=== PATIENT | male | born 1970 | race Caucasian/White ===

== ENCOUNTER 2024-10-30 11:24 | Observation (INO) | payer OTHER, SELFPAY ==
[2024-10-30] VITALS (7 sets, daily range): BP systolic 134–151; BP diastolic 71–87; PULSE 74–94; RESP 14–18; TEMP 36.2–36.8; O2SAT 98–100; BMI 47.5; BMI 21.3
--- NOTE | 2024-10-30 11:35 | EKG12_ITS ---
Test Reason : Blood Pressure : */* mmHG Vent. Rate : 91 BPM Atrial Rate : 91 BPM P-R Int : 166 ms QRS Dur : 76 ms QT Int : 326 ms P-R-T Axes : 71 57 71 degrees QTcB Int : 400 ms Normal sinus rhythm Normal ECG Confirmed by DAHLIA IRENE, TRESSA ([id number]), production editor CAROL WOODWARD ([id number]) on 11/03/2024 1:37:16 P M Referred By: Raymond Doty Confirmed By: TRESSA VILLAGOMEZ MD
--- NOTE | 2024-10-30 11:38 | EDS_ITS ---
HPI History of Present Illness Chief Complaint: Wound Detail of Chief Complaint: Wound plantar surface left foot first noted 1 week ago Informant: patient and family Onset/Context/Timing Onset: Weeks Context: Sudden Onset Timing: Continuous Quality: Wound plantar surface left foot, red streaks have since developed dorsal me Location: Plantar surface, medial dorsal surface of foot and medial anterior leg Current Severity: Moderate Maximum Severity: Moderate Worsened by: Presumed PAD and diabetes Relieved by: Nothing Associated Symptoms Associated Symptoms: No constitutional symptoms Narrative Narrative: Patient is a 54-year-old male moving to [place] from [place]. He has nausea on no medication. He is no longer on medication. He denies recent weight loss. He denies polyuria polydipsia. He denies blurred vision. He noted a wound on the plantar surface of his foot approxi-1 week ago. He went to the urgent care that sent him to the ER. Patient states the red streaks were not present initially. He denies a traumatic fever, heart murmur, mitral prolapse or SBE. He has no allergy to antibiotics. He does endorse claudication. He has symptoms of claudication after 2-3 blocks. He denies cardiac or respiratory symptoms. Patient started smoking at age 20. 5 years ago he was smoking 1.5 packs/day. He never smoked more than 1.5 packs/day. He is presently smoking 1 pack/day. Prior similar symptoms: No Recent Illness/Hospitalization: No PFSH PFS Medical History Diabetes mellitus, type II Home Medications ?Medication ?Instructions ?Recorded ?Last Taken ?Type NK 10/30/24 Unknown History Allergy/AdvReac Type Severity Reaction Status Date / Time No Known Allergies Allergy Verified 10/30/24 11:25 Family History Other Diabetes Social History Smoking Status: Current every day smoker tobacco type: cigarettes alcohol intake: current alcohol intake frequency: a few times a week Alcohol type: beer ROS ROS ED Constitutional Constitutional ED: Denies chills, fever(s), subjective or sweats Eyes Eyes: Denies blurry vision or change in vision ENT ENT ED: Denies sore throat Cardiovascular Cardiovascular: Denies chest pain or palpitations Respiratory/Chest Respiratory/Chest: Denies cough, dyspnea or dyspnea on exertion Gastrointestinal Gastrointestinal: Denies abdominal pain, nausea or vomiting Genitourinary Genitourinary ED: Denies urinary frequency Integumentary Reports rash Neurologic Neurologic: Denies paresthesias or weakness Endocrine Endocrinology: Denies cold intolerance, heat intolerance or polydipsia Hematologic/Lymphatic Hematologic/Lymphatic: Reports systems reviewed and no addt'l complaints, except as documented EXAM Physical Exam Const Vital Signs: 10/30/24 11:24 Temperature 97.2 F L Temperature Source Temporal Pulse Rate 94 Respiratory Rate 14 Blood Pressure 151/81 H Blood Pressure Mean 104 Pulse Ox 100 Oxygen Delivery Method Room Air Positive well nourished and well developed General Appearance ED: well developed and NAD HEENT Reports moist mucous membranes HEENT Narrative: Head is atraumatic normocephalic. Ears normal. Nares patent. Eyes PERRL and EOMs intact bilaterally General Eye ED: Negative for pale conjunctiva or scleral icterus Neck no lymphadenopathy, supple and no JVD Resp normal respiratory effort and clear to auscultation bilaterally Cardio regular rate, regular rhythm, S1 normal heart sound, S2 normal heart sound and no murmurs GI normal to inspection, nondistended, normoactive bowel sounds, non-tender, non- distended and no masses; Negative for hepatosplenomegaly Extremity Extremity Narrative: Patient has a callus plantar surface of the left foot near the head of the fourth fifth metatarsal. There is not area of fluctuance and obvious fluid collection. This appears to be under the skin. Needle aspirate was undertaken of brown purulent material. This was sent for stat Gram stain and culture. There is multiple lymphangitic streaks noted. These were outlined. The area of erythema on the dorsal surface of the foot was outlined as well. Neuro oriented x3 and CN's II-XII intact bilaterally Sensorium / Orientation: alert Psych mental status grossly normal Skin Skin Narrative: Documented under the extremity portion of the EMR MDM MDM MDM Narrative Medical decision making narrative: Patient with a diabetic foot infection. Concerned patient may be bacteremic since he has lymphangitis. Sepsis workup was initiated. Also obtain x-ray, CRP and ESR to evaluate possibility of osteomyelitis. Since patient has no allergies to antibiotics he was treated with Zosyn and vancomycin. Patient was informed he will require admission to the hospital. Since he is relocating to [place] he would like an mixer pigment. History & Record Review Discussion w/independent historian: Patient and Family Lab Data Attestation: I reviewed the patient's lab results. Lab results narrative: CBC is normal. Coags are normal. Sodium is 134. Blood sugar is 270 with a normal CO2 anion gap. C-reactive protein is elevated 20.4. ESR is normal. Labs: Laboratory Results - last 24 hr 10/30/24 11:50 WBC 4.6 RBC 5.03 Hgb 15.3 Hct 44.1 MCV 87.7 MCH 30.4 MCHC 34.7 RDW Std Deviation 40.3 RDW Coeff of Jacquelin 12.5 Plt Count 175 MPV 9.8 Immature Gran % (Auto) 0.200 Neut % (Auto) 54.7 Lymph % (Auto) 30.0 [place] % (Auto) 9.5 Eos % (Auto) 4.3 Baso % (Auto) 1.3 H Absolute Neuts (auto) 2.5 Absolute Lymphs (auto) 1.39 Nucleated RBC % 0 ESR 9 PT 12.3 INR 0.9 APTT 27.9 Sodium 134 L Potassium 4.5 Chloride 100 Carbon Dioxide 29.0 Anion Gap 4 L BUN 13 Creatinine 0.84 Estim Creat Clear Calc 163.10 Est GFR (MDRD) Af Amer 124 Est GFR (MDRD) Non-Af 102 BUN/Creatinine Ratio 15.6 Glucose 270 H Lactic Acid 1.2 Calcium 9.0 Total Bilirubin 0.40 AST 8 L ALT 16 Alkaline Phosphatase 104 C-React Prot Ext Range 20.40 H Total Protein 7.4 Albumin 3.7 Globulin 3.7 Albumin/Globulin Ratio 1.0 Radiography Chest X-Ray - ED: Read by ED Physician (Three-view x-ray reveals soft tissue defect near the head of the fifth metatarsal/fourth metatarsal. On the PA view and oblique view there is a an area of the represents a hypodense lesion which may be due to osteo. There is no periosteal elevation noted on the oblique or PA view.) Diagnostic Testing: Clinical Impression(s) from Imaging Studies Foot X-Ray 10/30/24 12:10 IMPRESSION: Second distal phalanx bone loss associated with a distal radiolucency, may be secondary to a prior injury or osteomyelitis of uncertain chronicity. Electronically Signed: Alma Graves MD at 12:45 EST , Management Discussion w/another healthcare provider: Hospitalist (Spoke with Dr. Raymond Doty and informed him of history, physical findings and concerns. Patient be admitted to the medical unit.) Treatment and Re-Evaluation :: Patient and relative were informed of results. Hospitalist been paged for admission. Discharge Plan Triage Chief Complaint: Wound ED Provider: Onofre Mcnally Dx/Rx/DC Orders Clinical Impression: Type 2 diabetes mellitus with diabetic foot infection, Hyperglycemia due to type 2 diabetes mellitus, Lymphangitis of lower extremity Prescriptions: No Action NK Primary Care Provider: Care Physician,No Primary Referrals: Care Physician,No Primary [Primary Care Provider] - Print Language: Bengali
[2024-10-30] MEDS: Vancomycin HCl 2,000 MG in 0.9% Normal Saline (500mL Bag) 500 ML 250 MG IV (12:04)
--- NOTE | 2024-10-30 12:10 | RAD_ITS ---
INDICATION: Diabetic foot infection EXAMINATION/TECHNIQUE: X-RAY - LEFT XR Foot Min 3 Views 3 VIEWS COMPARISON: No relevant prior comparison study available FINDINGS: SOFT TISSUES: No soft tissue swelling or gas. No radiopaque foreign body. BONES/JOINTS: No acute fracture or subluxation.. Normal alignment. Preservation of the joint space.. There is bone loss within the tuft of the second distal phalanx. There is a well-circumscribed radiolucency within the second distal phalanx as well. RAD/Foot min 3 Views IMPRESSION: Second distal phalanx bone loss associated with a distal radiolucency, may be secondary to a prior injury or osteomyelitis of uncertain chronicity. Electronically Signed: Alma Graves MD at 12:45 EST ,
[2024-10-30 12:13] LABS: Absolute Lymphocyte Count 1.39 X10^3/uL (0.83-4.51); Absolute Neutrophil Count 2.5 X10^3/uL (2.0-7.7); Basophil# 0.06 X10^3/uL; Basophil% 1.3 % (0-1); Eosinophils% 4.3 % (0-5); Hematocrit 44.1 % (40-54); Hemoglobin 15.3 g/dL (13.0-16.5); Lymphocyte # 1.39 X10^3/ul (0.83-4.51); Mean Corp Hgb Conc 34.7 g/dL (32-36); Mean Corpuscular Hgb 30.4 pg (27.0-32.0); Mean Corpuscular Volume 87.7 fL (80-94); Mean Platelet Vol. 9.8 fl (6.2-12.0); Monocyte# 0.44 X10^3/uL; Monocyte% 9.5 % (0-10); NRBC Flagged by Analyzer 0 % (0-5); Neutrophil # 2.53 X10^3/uL (2.7-7.7); Neutrophil % 54.7 % (47-70); Platelet Count 175 K/mm3 (150-450); RBC Distribution Width CV 12.5 % (11.6-14.6); RBC Distribution Width SD 40.3 fl (35.1-43.9); Red Blood Count 5.03 M/mm3 (4.6-6.2); White Blood Count 4.6 K/mm3 (4.4-11.0)
[2024-10-30 12:15] LABS: Erythrocyte Sedimentation Rate 9 mm/hr (0-20)
[2024-10-30 12:18] LABS: International Normalized Ratio 0.9; Prothrombin Time (Protime)PT. 12.3 SECONDS (11.7-14.9)
[2024-10-30 12:19] LABS: Partial Thromboplast Time 27.9 Seconds (24.1-36.2)
[2024-10-30 12:25] LABS: AST(SGOT) 8 U/L (15-37); Alanine Aminotransfer ALT/SGPT 16 U/L (16-61); Albumin, Serum 3.7 g/dL (3.2-5.0); Alkaline Phosphatase 104 U/L (45-117); Anion Gap 4 (5-15); BUN 13 mg/dL (7-18); BUN/Creat Ratio 15.6 RATIO (10-20); Chloride 100 mmol/L (98-107); Creatinine, Serum 0.84 mg/dL (0.70-1.30); EST Glomerular Filtration Rate 102 mL/min (>60); Est Glom Filt Rate - Afr Amer 124 mL/min (>60); Globulin 3.7 g/dL (2.2-4.2); Glucose 270 mg/dL (74-106); Potassium 4.5 mmol/L (3.5-5.1); Protein, Total 7.4 g/dL (6.4-8.2); Sodium Level 134 mmol/L (136-145)
[2024-10-30 12:53] LABS: Lactic Acid 1.2 mmol/L (0.4-1.9)
--- NOTE | 2024-10-30 13:25 | PCM.HP.STD ---
HPI - General General Date of Admission: 10/30/24 Date of Service: 10/30/24 Chief Complaint: Foot redness. HPI Narrative CASSANDRA VELASCO, is a 54 M who presents with left foot redness. Symptoms began couple days ago redness is extended proximally. Patient is diabetic with diabetic neuropathy so has limited sensation in his feet. He presented to the emergency room where he had a callus around his fifth MTP and beneath that was an area of compromised tissue. Fluid was aspirated and sent off for culture. He received vancomycin in the emergency room. Patient had been on medication for his diabetes before but had been controlled so he was subsequent taken off. FORMERLY [facility], [facility] Medical History (Updated 10/30/24 @ 13:[address] Raymond Doty DO) Diabetic neuropathy Diabetes mellitus, type II Home Medications ?Medication ?Instructions ?Recorded ?Last Taken ?Type NK 10/30/24 Unknown History Allergy/AdvReac Type Severity Reaction Status Date / Time No Known Allergies Allergy Verified 10/30/24 11:25 Family History Other Diabetes Social History Smoking Status: Current every day smoker tobacco type: cigarettes alcohol intake: current alcohol intake frequency: a few times a week Alcohol type: beer SAMSON DAVIES Narrative Has some chills. Neuropathy in his feet and some mild pain in his feet though. ROS Vital Signs Vital Signs Vital Signs: 10/30/24 11:24 10/30/24 11:35 10/30/24 11:40 Temperature 36.2 C L 36.6 C Temperature Source Temporal Oral Pulse Rate 94 85 Respiratory Rate 14 15 Blood Pressure 151/81 H 135/82 H Blood Pressure Mean 104 99 Pulse Ox 100 100 Oxygen Delivery Method Room Air Room Air Room Air 10/30/24 12:40 10/30/24 13:00 10/30/24 13:23 Temperature 36.8 C 36.6 C 36.6 C Temperature Source Oral Oral Pulse Rate 81 87 74 Respiratory Rate 14 16 14 Blood Pressure 136/81 H 136/78 H 134/71 H Blood Pressure Mean 99 97 92 Pulse Ox 100 100 100 Oxygen Delivery Method Room Air Room Air Weight Weight: 163.6 kg Body Mass Index (BMI) 47.5 Physical Exam Const alert and no apparent distress HEENT normocephalic, head/scalp atraumatic, hearing grossly normal bilaterally and moist oral mucous membranes Resp normal respiratory effort, no retractions, no use of accessory muscles and clear to auscultation bilaterally Cardio regular rate, regular rhythm, S1 normal heart sound and S2 normal heart sound GI normal to inspection, nondistended, normoactive bowel sounds, soft to palpation, non-tender and non-distended Extremity Extremity Narrative: On the dorsum of his left foot, he has a callus between his fourth and fifth MTP but more proximal is compromised tissue with liquid visualized underneath. That liquid appears to be serous and not purulent. Was like a crescent around his callus. Neuro Sensorium / Orientation: awake and alert Results Lab / Micro Data 10/30/24 11:50 10/30/24 11:50 Labs: Laboratory Results - last 24 hr 10/30/24 11:50: WBC 4.6, RBC 5.03, Hgb 15.3, Hct 44.1, MCV 87.7, MCH 30.4, MCHC 34.7, RDW Std Deviation 40.3, RDW Coeff of Jacquelin 12.5, Plt Count 175, MPV 9.8, Immature Gran % (Auto) 0.200, Neut % (Auto) 54.7, Lymph % (Auto) 30.0, [place] % (Auto) 9.5, Eos % (Auto) 4.3, Baso % (Auto) 1.3 H, Absolute Neuts (auto) 2.5, Absolute Lymphs (auto) 1.39, Nucleated RBC % 0, ESR 9, PT 12.3, INR 0.9, APTT 27.9, Sodium 134 L, Potassium 4.5, Chloride 100, Carbon Dioxide 29.0, Anion Gap 4 L, BUN 13, Creatinine 0.84, Estim Creat Clear Calc 163.10, Est GFR (MDRD) Af Amer 124, Est GFR (MDRD) Non-Af 102, BUN/Creatinine Ratio 15.6, Glucose 270 H, Lactic Acid 1.2, Calcium 9.0, Total Bilirubin 0.40, AST 8 L, ALT 16, Alkaline Phosphatase 104, C-React Prot Ext Range 20.40 H, Total Protein 7.4, Albumin 3.7, Globulin 3.7, Albumin/Globulin Ratio 1.0 Imaging Radiology Impression Foot X-Ray 10/30/24 12:10 IMPRESSION: Second distal phalanx bone loss associated with a distal radiolucency, may be secondary to a prior injury or osteomyelitis of uncertain chronicity. Electronically Signed: Alma Graves MD at 12:45 EST , Assessment & Plan Assessment/Plan (1) Diabetic foot infection: PLAN: Culture obtained in the emergency room. Antibiotics with ampicillin/sulbactam and vancomycin. Check an MRI Consult Dr. Melgar of podiatry. I did explain to the patient and his significant other at bedside that he would require some sort of surgery but is unclear if that would be more superficial or if that involving bone that would require something more extensive. PLAN: Plan Diabetes mellitus type 2: No longer on medications. Will check an A1c have sliding scale insulin available. Diabetic neuropathy: Complicates care. VTE prophylaxis with enoxaparin. Charges/Coding Visit Charges Inpatient E&M: 05415 Init Hosp L2
--- NOTE | 2024-10-30 14:17 | PCM.RX.CS ---
Consult Antibiotic Management Pharmacy has been consulted to manage selected antibiotic: Vancomycin Type of Intervention Type of Consult: New start Suspected Infection Suspected Infection: Skin/Soft tissue Prior Doses of Antibiotics Prior Doses of Antibiotics Received/Current Regimen: received vanc 2000mg IV x1 in E.R. starting at 12:04 today (it appears this was dosed off an incorrect weight that was entered as kg instead of lbs so the dose was a little higher than it should have been) Labs Labs: Sodium 134 mmol/L (136-145) L 10/30/24 11:50 Potassium 4.5 mmol/L (3.5-5.1) 10/30/24 11:50 Chloride 100 mmol/L (98-107) 10/30/24 11:50 Carbon Dioxide 29.0 mmol/L (21.0-32.0) 10/30/24 11:50 Anion Gap 4 (5-15) L 10/30/24 11:50 BUN 13 mg/dL (7-18) 10/30/24 11:50 Creatinine 0.84 mg/dL (0.70-1.30) 10/30/24 11:50 Est GFR (MDRD) Af Amer 124 mL/min (>60) 10/30/24 11:50 Est GFR (MDRD) Non-Af 102 mL/min (>60) 10/30/24 11:50 BUN/Creatinine Ratio 15.6 RATIO (10-20) 10/30/24 11:50 Glucose 270 mg/dL (74-106) H 10/30/24 11:50 Dosing Weight Weight used for dosin.3 kg Estimated Creatinine Clearance Estimated Creatinine Clearance: >100ml/min Goal Trough Goal Trough: 15-20 mcg/mL Pharmacy Plan for Drug Dosing Pharmacy Plan for Drug Dosing: Starting 12 hours after the initial E.R. dose, will continue with vanc 1500mg IV q12h (this is one step down on the dosing chart from the suggested 1gm q8h and is being used since the initial dose was higher than it should have been). Will check a trough before the 4th overall dose tomorrow night. Pharmacy Service will continue to monitor and adjust dosing as required. Follow-Up Labs Follow-Up Labs: Trough: Vancomycin Date/Time Labs Ordered Labs to be done on [date and time ordered]: 10/31/24 23:30
[2024-10-30 14:29] LABS: Hemoglobin A1c 9.6 % (3.8-5.6)
[2024-10-30] MEDS: Ampicillin/Sulbactam 3 GM in 0.9% Normal Saline (100mL MB+) 100 ML IV ×3 (14:49→23:16)
[2024-10-30] MEDS: 0.9% Normal Saline (100mL Bag) 100 ML 15 ML IV (14:55)
[2024-10-30] MEDS: Insulin Lispro 100 UNIT/ML INSULN.PEN SC ×2 (16:18→20:09)
[2024-10-30 16:47] LABS: Bedside Glucose 223 mg/dL (74-106)
[2024-10-30] MEDS: Acetaminophen 325 MG Tablet 650 MG PO (17:49)
[2024-10-30] MEDS: oxyCODONE 5 MG Tablet PO (17:49)
[2024-10-30 20:33] LABS: Bedside Glucose 260 mg/dL (74-106)
[2024-10-31] MEDS: Vancomycin HCl 1,500 MG in 0.9% Normal Saline (500mL Bag) 500 ML 250 MG IV ×2 (00:07→12:00)
[2024-10-31] MEDS: Ampicillin/Sulbactam 3 GM in 0.9% Normal Saline (100mL MB+) 100 ML IV ×4 (04:39→23:01)
[2024-10-31 05:39] VITALS: BP 126/80; PULSE 81; RESP 16; TEMP 36.8; O2SAT 97
[2024-10-31 06:13] LABS: Bedside Glucose 151 mg/dL (74-106)
[2024-10-31 06:22] LABS: Absolute Lymphocyte Count 0.96 X10^3/uL (0.83-4.51); Absolute Neutrophil Count 2.8 X10^3/uL (2.0-7.7); Basophil# 0.06 X10^3/uL; Basophil% 1.4 % (0-1); Eosinophil# 0.18 X10^3/uL; Eosinophils% 4.1 % (0-5); Hematocrit 40.6 % (40-54); Hemoglobin 14.3 g/dL (13.0-16.5); Lymphocyte # 0.96 X10^3/ul (0.83-4.51); Lymphocyte % 21.8 % (19-41); Mean Corp Hgb Conc 35.2 g/dL (32-36); Mean Corpuscular Hgb 30.9 pg (27.0-32.0); Mean Corpuscular Volume 87.7 fL (80-94); Mean Platelet Vol. 10.2 fl (6.2-12.0); Monocyte# 0.39 X10^3/uL; Monocyte% 8.9 % (0-10); NRBC Flagged by Analyzer 0 % (0-5); Neutrophil % 63.6 % (47-70); Platelet Count 164 K/mm3 (150-450); RBC Distribution Width CV 12.6 % (11.6-14.6); RBC Distribution Width SD 40.3 fl (35.1-43.9); Red Blood Count 4.63 M/mm3 (4.6-6.2); White Blood Count 4.4 K/mm3 (4.4-11.0)
[2024-10-31 06:53] LABS: Anion Gap 5 (5-15); BUN 10 mg/dL (7-18); BUN/Creat Ratio 14.8 RATIO (10-20); Calcium,Total 8.7 mg/dL (8.5-10.1); Chloride 106 mmol/L (98-107); Creatinine, Serum 0.68 mg/dL (0.70-1.30); EST Glomerular Filtration Rate 131 mL/min (>60); Est Glom Filt Rate - Afr Amer 158 mL/min (>60); Estimated Creatinine Clearance 130.25 ml/min; Glucose 145 mg/dL (74-106); Potassium 3.9 mmol/L (3.5-5.1); Sodium Level 137 mmol/L (136-145)
--- NOTE | 2024-10-31 07:06 | PN.HOSP_ITS ---
Reason for Visit Reason for Visit: Diagnoses Type 2 diabetes mellitus with other skin complications (10/30/24) Local infection of the skin and subcutaneous tissue, unspecified (10/30/24) Subjective Subjective No new events. States that the redness around his ankle is improving. Objective Data Objective Data Vital Signs: Vital Signs Temp Pulse Resp BP Pulse Ox O2 Del Method 36.8 C 81 16 126/80 H 97 Room Air 10/31/24 05:39 10/31/24 05:39 10/31/24 05:39 10/31/24 05:39 10/31/24 05:39 10/31/24 05:39 Oxygen Delivery Method Room Air Weight: 73.301 kg Body Mass Index (BMI) 21.3 Intake & Output: Intake and Output for Last 24 Hours 10/29/24 10/30/24 10/31/24 23:59 23:59 23:59 Intake Total 791.25 / 791.25 1526.75 / 1526.75 Balance 791.25 / 791.25 1526.75 / 1526.75 Lab / Micro Data 10/31/24 05:31 10/31/24 05:31 Labs: Laboratory Results - last 24 hr 10/30/24 11:50: WBC 4.6, RBC 5.03, Hgb 15.3, Hct 44.1, MCV 87.7, MCH 30.4, MCHC 34.7, RDW Std Deviation 40.3, RDW Coeff of Jacquelin 12.5, Plt Count 175, MPV 9.8, Immature Gran % (Auto) 0.200, Neut % (Auto) 54.7, Lymph % (Auto) 30.0, [place] % (Auto) 9.5, Eos % (Auto) 4.3, Baso % (Auto) 1.3 H, Absolute Neuts (auto) 2.5, Absolute Lymphs (auto) 1.39, Nucleated RBC % 0, ESR 9, PT 12.3, INR 0.9, APTT 27.9, Sodium 134 L, Potassium 4.5, Chloride 100, Carbon Dioxide 29.0, Anion Gap 4 L, BUN 13, Creatinine 0.84, Estim Creat Clear Calc 163.10, Est GFR (MDRD) Af Amer 124, Est GFR (MDRD) Non-Af 102, BUN/Creatinine Ratio 15.6, Glucose 270 H, H emoglobin A1c 9.6 H, Lactic Acid 1.2, Calcium 9.0, Total Bilirubin 0.40, AST 8 L , ALT 16, Alkaline Phosphatase 104, C-React Prot Ext Range 20.40 H, Total Protein 7.4, Albumin 3.7, Globulin 3.7, Albumin/Globulin Ratio 1.0 10/30/24 16:15: POC Glucose 223 H 10/30/24 20:09: POC Glucose 260 H 10/31/24 05:31: WBC 4.4, RBC 4.63, Hgb 14.3, Hct 40.6, MCV 87.7, MCH 30.9, MCHC 35.2, RDW Std Deviation 40.3, RDW Coeff of Jacquelin 12.6, Plt Count 164, MPV 10.2, Immature Gran % (Auto) 0.200, Neut % (Auto) 63.6, Lymph % (Auto) 21.8, [place] % (Auto) 8.9, Eos % (Auto) 4.1, Baso % (Auto) 1.4 H, Absolute Neuts (auto) 2.8, Absolute Lymphs (auto) 0.96, Nucleated RBC % 0, Sodium 137, Potassium 3.9, Chloride 106, Carbon Dioxide 26.0, Anion Gap 5, BUN 10, Creatinine 0.68 L, Estim Creat Clear Calc 130.25, Est GFR (MDRD) Af Amer 158, Est GFR (MDRD) Non-Af 131, BUN/Creatinine Ratio 14.8, Glucose 145 H, Calcium 8.7 10/31/24 05:50: POC Glucose 151 H Micro: Microbiology 10/30/24 11:45 Wound - Left Foot Skin and Soft Tissue MRSA/MSSA (PCR - Final Radiography Diagnostic Testing: Radiology Impression Foot X-Ray 10/30/24 12:10 IMPRESSION: Second distal phalanx bone loss associated with a distal radiolucency, may be secondary to a prior injury or osteomyelitis of uncertain chronicity. Electronically Signed: Alma Graves MD at 12:45 EST , Physical Exam Const alert and no apparent distress Constitutional Narrative: Up in bed. Nontoxic. Afebrile. Extremity Extremity Narrative: Left foot wrapped, did not remove. No further lymphangitis spreading proximally up his medial ankle. Assessment & Plan Assessment/Plan (1) Diabetic foot infection: PLAN: Culture obtained in the emergency room. Antibiotics with ampicillin/sulbactam and vancomycin. ESR 9. CRP 20.4. Check an MRI Podiatry consulted and patient had a debridement of his left foot down to nonviable tissue. Recommending heel weightbearing in surgical shoe to left foot. Still waiting on MRI results but tentative plan to be to follow-up with podiatry in a week Wound culture thus far showing group B strep. Will follow-up cultures for another day and determine if any additional organisms are identified in the wound culture but also if anything shows up in the blood cultures. PCR for MSSA and MRSA is negative PLAN: Plan Diabetes mellitus type 2: No longer on medications. Will check an A1c have sliding scale insulin available. Diabetic neuropathy: Complicates care. VTE prophylaxis with enoxaparin. Charges/Coding Visit Charges Inpatient E&M: 08015 [facility] Hosp L1
[2024-10-31] MEDS: Enoxaparin 40 MG/0.4 ML Syringe SC (08:08)
--- NOTE | 2024-10-31 09:00 | MRI_ITS ---
EXAM: MR LEFT LOWER EXTREMITY WITHOUT AND WITH INTRAVENOUS CONTRAST, FOOT CLINICAL INDICATION: left foot cellulitis TECHNIQUE: Multiplanar and multisequence MR images of the left foot without and with intravenous contrast. CONTRAST: IV 15ml clariscan COMPARISON: No relevant prior studies available. FINDINGS: MUSCLES: Unremarkable. No edema or myositis. FLUID: Unremarkable. No joint effusion. PLANTAR FASCIA: Unremarkable. Intact. BONES/JOINTS: Unremarkable. Normal forefoot alignment. No fracture. No bone marrow edema. No joint effusion. OTHER SOFT TISSUES: Unremarkable. MRI/Lower Ext No Joint W/WO Cont IMPRESSION: Unremarkable MRI of the left foot. No osteomyelitis. Electronically Signed: Shady Terry MD at 4:03 EST ,
[2024-10-31 09:23] VITALS: BP 132/89; PULSE 84; RESP 18; TEMP 36.4; O2SAT 98
--- NOTE | 2024-10-31 09:52 | CON.PCM_ITS ---
Assessment & Plan Assessment/Plan (1) Type 2 diabetes mellitus with diabetic polyneuropathy: QUALIFIERS: Diabetes mellitus nursing home insulin use: with nursing home use Qualified Code(s): E11.42 - Type 2 diabetes mellitus with diabetic polyneuropathy; Z79.4 - [facility] (current) use of insulin PLAN: Exam performed Radiographs reviewed Patient awaiting MRI Left foot wound was excisionally debrided down to and including level of subcutaneous tissue of all nonviable tissue using a #15 blade. Pre and postdebridement measurements documented notes. No anesthesia due to neuropathy. Hemostasis obtained with light compression. Patient tolerated procedure well. Dressed site with Betadine 4 x 4's Kerlix and [place] bandage. Recommend heel weightbearing in surgical shoe to left foot. Will plan for diabetic shoes plus minus floating metatarsal osteotomy to the left fourth metatarsal head if there is any delayed wound healing Discussed tighter blood glucose regulation Will plan for follow-up 1 week, pending any changes with MRI I believe that surgical intervention will not be required and patient will likely be stable for discharge on oral antibiotics pending continued improvement of left lower extremity cellulitis (2) Cellulitis of left lower limb: (3) Non-pressure chronic ulcer of other part of left foot with fat layer exposed: HPI Consult Data Date of Consult: 10/31/24 HPI Narrative HPI Narrative: CASSANDRA VELASCO, is a 54 M who presents with poorly controlled diabetes history of hemoglobin A1c 9 presents today with left foot diabetic foot infection. Patient notes that he has painful calluses to bilateral feet plantarly. Patient was seen by Dr. Bateman in [facility]. Patient notes that his left foot became increasingly painful and started to develop redness and streaking extending from the dorsal foot into his ankle. Patient was seen in the ER which time they cultured the foot wound and drained some pus from the BHARAT callus area. Patient notes significant improvement in the redness and swelling today as well as pain. Patient denies any constitutional symptoms. Patient has no other complaints. [facility] Medical History Diabetic neuropathy Diabetes mellitus, type II Home Medications ?Medication ?Instructions ?Recorded ?Last Taken ?Type NK 10/30/24 Unknown History Allergy/AdvReac Type Severity Reaction Status Date / Time No Known Allergies Allergy Verified 10/30/24 11:25 Family History Other Diabetes Social History Smoking Status: Current every day smoker tobacco type: cigarettes alcohol intake: current alcohol intake frequency: a few times a week Alcohol type: beer ROS Constitutional Constitutional: Denies change in weight, chills or headache(s) Eyes Eyes: Denies acute decrease in peripheral vision, change in eye color or change in vision ENT HEENT: Denies bleeding gums, change in voice or epistaxis Cardiovascular Cardiovascular: Denies abdominal edema, abdominal pain or chest pain at rest Respiratory/Chest Respiratory/Chest: Denies change in phlegm color, chest congestion or dyspnea Gastrointestinal Gastrointestinal: Denies belching, bloating or constipation Genitourinary Genitourinary: Denies anuria, burning urination or difficulty with ejaculations Physical Exam Narrative Vascular: Dorsalis pedis posterior tibial pulses palpable 2 out of 4 bilateral lower extremity compartments. Capillary fill time brisk to lesser digits. Neurologic: Light touch protective sensation intact bilateral feet. Dermatologic: Callus noted to the plantar aspect of the fourth MPJ to the left foot this callus has from the underlying tissue creating a full- thickness ulceration upon debridement. Predebridement there was noted to be a 1.5 to 1.5 cm callus postdebridement there is a wound with a stable granular base measuring 1.6 x 1.6 x 0.4 cm in depth. There is mild erythema and edema to the periwound area. There is mild serosanguineous drainage noted from the wound site. There is no underlying fluctuance or crepitance no residual purulence noted today. Erythema extending into the dorsal foot and ankle has resolved. Noted be callus to the plantar aspect of the right third metatarsal head. No underlying wound. Musculoskeletal: Plantarflexed left fourth metatarsal head, plantarflexed right third metatarsal head. Muscular strength full. No other gross deformity noted. No sign of DVT. Lab / Micro Data 10/31/24 05:31 10/31/24 05:31 Labs: Laboratory Results - last 24 hr 10/30/24 11:50: WBC 4.6, RBC 5.03, Hgb 15.3, Hct 44.1, MCV 87.7, MCH 30.4, MCHC 34.7, RDW Std Deviation 40.3, RDW Coeff of Jacquelin 12.5, Plt Count 175, MPV 9.8, Immature Gran % (Auto) 0.200, Neut % (Auto) 54.7, Lymph % (Auto) 30.0, [place] % (Auto) 9.5, Eos % (Auto) 4.3, Baso % (Auto) 1.3 H, Absolute Neuts (auto) 2.5, Absolute Lymphs (auto) 1.39, Nucleated RBC % 0, ESR 9, PT 12.3, INR 0.9, APTT 27.9, Sodium 134 L, Potassium 4.5, Chloride 100, Carbon Dioxide 29.0, Anion Gap 4 L, BUN 13, Creatinine 0.84, Estim Creat Clear Calc 163.10, Est GFR (MDRD) Af Amer 124, Est GFR (MDRD) Non-Af 102, BUN/Creatinine Ratio 15.6, Glucose 270 H, H emoglobin A1c 9.6 H, Lactic Acid 1.2, Calcium 9.0, Total Bilirubin 0.40, AST 8 L , ALT 16, Alkaline Phosphatase 104, C-React Prot Ext Range 20.40 H, Total Protein 7.4, Albumin 3.7, Globulin 3.7, Albumin/Globulin Ratio 1.0 10/30/24 16:15: POC Glucose 223 H 10/30/24 20:09: POC Glucose 260 H 10/31/24 05:31: WBC 4.4, RBC 4.63, Hgb 14.3, Hct 40.6, MCV 87.7, MCH 30.9, MCHC 35.2, RDW Std Deviation 40.3, RDW Coeff of Jacquelin 12.6, Plt Count 164, MPV 10.2, Immature Gran % (Auto) 0.200, Neut % (Auto) 63.6, Lymph % (Auto) 21.8, [place] % (Auto) 8.9, Eos % (Auto) 4.1, Baso % (Auto) 1.4 H, Absolute Neuts (auto) 2.8, Absolute Lymphs (auto) 0.96, Nucleated RBC % 0, Sodium 137, Potassium 3.9, Chloride 106, Carbon Dioxide 26.0, Anion Gap 5, BUN 10, Creatinine 0.68 L, Estim Creat Clear Calc 130.25, Est GFR (MDRD) Af Amer 158, Est GFR (MDRD) Non-Af 131, BUN/Creatinine Ratio 14.8, Glucose 145 H, Calcium 8.7 10/31/24 05:50: POC Glucose 151 H Micro: Microbiology 10/30/24 11:45 Wound - Left Foot Skin and Soft Tissue MRSA/MSSA (PCR - Final Imaging Radiology Impression Foot X-Ray 10/30/24 12:10 IMPRESSION: Second distal phalanx bone loss associated with a distal radiolucency, may be secondary to a prior injury or osteomyelitis of uncertain chronicity. Electronically Signed: Alma Graves MD at 12:45 EST ,
[2024-10-31] MEDS: Insulin Lispro 100 UNIT/ML INSULN.PEN SC ×3 (11:07→20:08)
[2024-10-31 11:25] LABS: Bedside Glucose 229 mg/dL (74-106)
[2024-10-31 15:00] VITALS: BP 151/92; PULSE 88; RESP 18; TEMP 36.2; O2SAT 100
[2024-10-31 16:44] LABS: Bedside Glucose 250 mg/dL (74-106)
[2024-10-31 20:03] VITALS: BP 151/80; PULSE 84; RESP 16; TEMP 36.5; O2SAT 98
[2024-10-31 22:20] LABS: Bedside Glucose 264 mg/dL (74-106)
[2024-11-01] MEDS: Vancomycin HCl 1,750 MG in 0.9% Normal Saline (500mL Bag) 500 ML 250 MG IV ×2 (00:43→12:17)
--- NOTE | 2024-11-01 00:45 | PCM.RX.CS ---
Consult Antibiotic Management Pharmacy has been consulted to manage selected antibiotic: Vancomycin Type of Intervention Type of Consult: Follow-up Labs Labs: Sodium 137 mmol/L (136-145) 10/31/24 05:31 Potassium 3.9 mmol/L (3.5-5.1) 10/31/24 05:31 Chloride 106 mmol/L (98-107) 10/31/24 05:31 Carbon Dioxide 26.0 mmol/L (21.0-32.0) 10/31/24 05:31 Anion Gap 5 (5-15) 10/31/24 05:31 BUN 10 mg/dL (7-18) 10/31/24 05:31 Creatinine 0.68 mg/dL (0.70-1.30) L 10/31/24 05:31 Est GFR (MDRD) Af Amer 158 mL/min (>60) 10/31/24 05:31 Est GFR (MDRD) Non-Af 131 mL/min (>60) 10/31/24 05:31 BUN/Creatinine Ratio 14.8 RATIO (10-20) 10/31/24 05:31 Glucose 145 mg/dL (74-106) H 10/31/24 05:31 Vancomycin Trough 13.0 ug/mL (5.0-15.0) 10/31/24 23:55 Microbiology Microbiology: Microbiology 10/30/24 11:45 Wound Abcess - Plantar Gram Stain - Final 10/30/24 11:45 Wound Abcess - Plantar Wound Culture - Preliminary Streptococcus agalactiae (B) 10/30/24 11:45 Wound - Left Foot Skin and Soft Tissue MRSA/MSSA (PCR - Final Goal Trough Goal Trough: 15-20 mcg/mL Pharmacy Plan for Drug Dosing Pharmacy Plan for Drug Dosing: Pharmacy Service will continue to monitor and adjust dosing as required. TROUGH 13.0 @ 12 HOURS. INCREASE TO 1750MG Q12H AND FOLLOW UP TROUGH PRIOR TO 4TH DOSE Follow-Up Labs Follow-Up Labs: Trough: Vancomycin Date/Time Labs Ordered Labs to be done on [date and time ordered]: 11/02 @ 1200
[2024-11-01] MEDS: Ampicillin/Sulbactam 3 GM in 0.9% Normal Saline (100mL MB+) 100 ML IV ×3 (06:12→17:56)
[2024-11-01 06:20] VITALS: BP 132/86; PULSE 91; RESP 16; TEMP 36.8; O2SAT 98
[2024-11-01 06:50] LABS: Absolute Lymphocyte Count 1.28 X10^3/uL (0.83-4.51); Absolute Neutrophil Count 2.6 X10^3/uL (2.0-7.7); Basophil# 0.05 X10^3/uL; Basophil% 1.1 % (0-1); Eosinophil# 0.21 X10^3/uL; Eosinophils% 4.6 % (0-5); Hematocrit 44.1 % (40-54); Hemoglobin 15.1 g/dL (13.0-16.5); Lymphocyte # 1.28 X10^3/ul (0.83-4.51); Lymphocyte % 28.1 % (19-41); Mean Corp Hgb Conc 34.2 g/dL (32-36); Mean Corpuscular Hgb 30.4 pg (27.0-32.0); Mean Corpuscular Volume 88.9 fL (80-94); Mean Platelet Vol. 9.8 fl (6.2-12.0); Monocyte# 0.44 X10^3/uL; Monocyte% 9.6 % (0-10); NRBC Flagged by Analyzer 0 % (0-5); Neutrophil # 2.56 X10^3/uL (2.7-7.7); Neutrophil % 56.2 % (47-70); Platelet Count 172 K/mm3 (150-450); RBC Distribution Width CV 12.5 % (11.6-14.6); RBC Distribution Width SD 40.6 fl (35.1-43.9); Red Blood Count 4.96 M/mm3 (4.6-6.2); White Blood Count 4.6 K/mm3 (4.4-11.0)
[2024-11-01 06:51] LABS: Bedside Glucose 173 mg/dL (74-106)
[2024-11-01 07:21] LABS: Anion Gap 3 (5-15); BUN 13 mg/dL (7-18); BUN/Creat Ratio 16.7 RATIO (10-20); Calcium,Total 9.3 mg/dL (8.5-10.1); Chloride 102 mmol/L (98-107); Creatinine, Serum 0.78 mg/dL (0.70-1.30); EST Glomerular Filtration Rate 111 mL/min (>60); Est Glom Filt Rate - Afr Amer 134 mL/min (>60); Estimated Creatinine Clearance 113.55 ml/min; Glucose 195 mg/dL (74-106); Potassium 4.1 mmol/L (3.5-5.1); Sodium Level 135 mmol/L (136-145)
--- NOTE | 2024-11-01 07:39 | PN.HOSP_ITS ---
Reason for Visit Reason for Visit: Diagnoses Type 2 diabetes mellitus with diabetic polyneuropathy (10/30/24) Type 2 diabetes mellitus with other skin complications (10/30/24) Cellulitis of left lower limb (10/30/24) Local infection of the skin and subcutaneous tissue, unspecified (10/30/24) Non-pressure chronic ulcer of other part of left foot with fat layer exposed (10/30/24) superintendent terminal (current) use of insulin (10/30/24) Subjective Subjective no further lymphangitis LLE Objective Data Objective Data Vital Signs: Vital Signs Temp Pulse Resp BP Pulse Ox O2 Del Method 36.8 C 91 16 132/86 H 98 Room Air 11/01/24 06:20 11/01/24 06:20 11/01/24 06:20 11/01/24 06:20 11/01/24 06:20 11/01/24 06:20 Oxygen Delivery Method Room Air Weight: 73.301 kg Body Mass Index (BMI) 21.3 Intake & Output: Intake and Output for Last 24 Hours 10/30/24 10/31/24 11/01/24 23:59 23:59 23:59 Intake Total 791.25 / 791.25 2280.75 / 2880.75 1547 / 1547 Balance 791.25 / 791.25 2280.75 / 2880.75 1547 / 1547 Lab / Micro Data 11/01/24 06:32 11/01/24 06:32 Labs: Laboratory Results - last 24 hr 10/31/24 11:05: POC Glucose 229 H 10/31/24 16:14: POC Glucose 250 H 10/31/24 20:07: POC Glucose 264 H 10/31/24 23:55: Vancomycin Trough 13.0 11/01/24 06:17: POC Glucose 173 H 11/01/24 06:32: WBC 4.6, RBC 4.96, Hgb 15.1, Hct 44.1, MCV 88.9, MCH 30.4, MCHC 34.2, RDW Std Deviation 40.6, RDW Coeff of Jacquelin 12.5, Plt Count 172, MPV 9.8, Immature Gran % (Auto) 0.400, Neut % (Auto) 56.2, Lymph % (Auto) 28.1, [place] % (Auto) 9.6, Eos % (Auto) 4.6, Baso % (Auto) 1.1 H, Absolute Neuts (auto) 2.6, Absolute Lymphs (auto) 1.28, Nucleated RBC % 0, Sodium 135 L, Potassium 4.1, Chloride 102, Carbon Dioxide 30.0, Anion Gap 3 L, BUN 13, Creatinine 0.78, Estim Creat Clear Calc 113.55, Est GFR (MDRD) Af Amer 134, Est GFR (MDRD) Non-Af 111, BUN/Creatinine Ratio 16.7, Glucose 195 H, Calcium 9.3 Micro: Microbiology 10/30/24 11:45 Wound Abcess - Plantar Gram Stain - Final 10/30/24 11:45 Wound Abcess - Plantar Wound Culture - Preliminary Streptococcus agalactiae (B) 10/30/24 11:45 Wound - Left Foot Skin and Soft Tissue MRSA/MSSA (PCR - Final Radiography Diagnostic Testing: Radiology Impression Lower Extremity MRI 10/31/24 09:00 IMPRESSION: Unremarkable MRI of the left foot. No osteomyelitis. Electronically Signed: Shady Terry MD at 4:03 EST , Physical Exam Const alert and no apparent distress Extremity Extremity Narrative: left foot wrapped. did not remove. pictures today from wound care reviewed and showed superficial lesion on plantar aspect Assessment & Plan Assessment/Plan (1) Diabetic foot infection: PLAN: Culture obtained in the emergency room. Antibiotics with ampicillin/sulbactam and vancomycin. ESR 9. CRP 20.4. Check an MRI Podiatry consulted and patient had a debridement of his left foot down to nonviable tissue. Recommending heel weightbearing in surgical shoe to left foot. Follow up with podiatry next week. Wound culture thus far showing group B strep. Will follow-up cultures for another day and determine if any additional organisms are identified in the wound culture but also if anything shows up in the blood cultures. PCR for MSSA and MRSA is negative MRI negative for osteomyelitis. Discharge with cephalexin PLAN: Plan Diabetes mellitus type 2: No longer on medications. Will check an A1c have sliding scale insulin available. Diabetic neuropathy: Complicates care. VTE prophylaxis with enoxaparin.
[2024-11-01 08:22] VITALS: BP 151/78; PULSE 82; RESP 17; TEMP 36.6; O2SAT 96
--- NOTE | 2024-11-01 09:48 | WOUNDNOTE ---
wound photo: left foot
--- NOTE | 2024-11-01 09:49 | WOUNDNOTE ---
wound photo: right foot
[2024-11-01] MEDS: Enoxaparin 40 MG/0.4 ML Syringe SC (10:04)
--- NOTE | 2024-11-01 10:46 | PCM.DC.SUM ---
Providers Date of Admission: 10/30/24 Primary Care Physician: Catrachita Primary Care Phys Consultations 10/30/24 13:47 Consult: Onc/Wound/motor rebuilder Routine Comment: Consult: Podiatry Routine Consulting Provider: Placido Melgar Reason for Consult: left diabetic foot wound EMERGENT Consult: No MD Notified: Yes Date Notified: 10/30/24 Time Notified: 13:18 Method of Notification: Text Reason For Visit: DIABETIC FOOT WOUND Diagnosis Discharge Diagnosis (1) Diabetic foot infection: Status: Acute Code(s): E11.628 - Type 2 diabetes mellitus with other skin complications; L08.9 - Local infection of the skin and subcutaneous tissue, unspecified Plan: Culture obtained in the emergency room. Antibiotics with ampicillin/sulbactam and vancomycin. ESR 9. CRP 20.4. Check an MRI Podiatry consulted and patient had a debridement of his left foot down to nonviable tissue. Recommending heel weightbearing in surgical shoe to left foot. Follow up with podiatry next week. Wound culture thus far showing group B strep. Will follow-up cultures for another day and determine if any additional organisms are identified in the wound culture but also if anything shows up in the blood cultures. PCR for MSSA and MRSA is negative MRI negative for osteomyelitis. Discharge with cephalexin Plan Diabetes mellitus type 2: No longer on medications. Will check an A1c have sliding scale insulin available. Diabetic neuropathy: Complicates care. VTE prophylaxis with enoxaparin. Medications at Discharge Home Medications cephalexin 500 mg capsule 500 mg PO Q8H #21 caps 11/01/24 metformin 500 mg tablet 500 mg PO DAILY #30 tabs 11/01/24 Hospital Course Operations - (Left foot wound was excisionally debrided down to and including level of subcutaneous tissue of all nonviable tissue using a #15 blade. ) Weight / BMI Weight Weight: 73.301 kg Body Mass Index (BMI) 21.3 ABG / Lab / Microbiology Data 11/01/24 06:32 11/01/24 06:32 Laboratory: Laboratory Results - last 24 hr 10/31/24 11:05: POC Glucose 229 H 10/31/24 16:14: POC Glucose 250 H 10/31/24 20:07: POC Glucose 264 H 10/31/24 23:55: Vancomycin Trough 13.0 11/01/24 06:17: POC Glucose 173 H 11/01/24 06:32: WBC 4.6, RBC 4.96, Hgb 15.1, Hct 44.1, MCV 88.9, MCH 30.4, MCHC 34.2, RDW Std Deviation 40.6, RDW Coeff of Jacquelin 12.5, Plt Count 172, MPV 9.8, Immature Gran % (Auto) 0.400, Neut % (Auto) 56.2, Lymph % (Auto) 28.1, [place] % (Auto) 9.6, Eos % (Auto) 4.6, Baso % (Auto) 1.1 H, Absolute Neuts (auto) 2.6, Absolute Lymphs (auto) 1.28, Nucleated RBC % 0, Sodium 135 L, Potassium 4.1, Chloride 102, Carbon Dioxide 30.0, Anion Gap 3 L, BUN 13, Creatinine 0.78, Estim Creat Clear Calc 113.55, Est GFR (MDRD) Af Amer 134, Est GFR (MDRD) Non-Af 111, BUN/Creatinine Ratio 16.7, Glucose 195 H, Calcium 9.3 Microbiology: Microbiology 10/30/24 11:45 Wound Abcess - Plantar Gram Stain - Final 10/30/24 11:45 Wound Abcess - Plantar Wound Culture - Final Streptococcus agalactiae (B) 10/30/24 11:55 Blood Culture (Wb) - Anticubital Right Blood Culture - Preliminary No growth in 48 hours. 10/30/24 11:55 Blood Culture (Wb) - Left Forearm Blood Culture - Preliminary No growth in 48 hours. 10/30/24 11:45 Wound - Left Foot Skin and Soft Tissue MRSA/MSSA (PCR - Final Radiography Diagnostic Testing: Radiology Impression Lower Extremity MRI 10/31/24 09:00 IMPRESSION: Unremarkable MRI of the left foot. No osteomyelitis. Electronically Signed: Shady Terry MD at 4:03 EST , D/C Instructions Discharge Diet: 2000 Calorie Control Diet DC O2, CPAP, BIPAP Needs Additional Home O2 Discharge instructions: No DC home with Oxygen: No Meaningful Use Info Meaningful Use Meaningful Use Diagnoses (Choose all that apply): None applicable Ischemic Stroke Statin Dosing Therapy Reference: STATIN DOSE THERAPY REFERENCE: * Patients > 75 years receive moderate or high dose statin therapy. * Patients 75 years or YOUNGER should receive HIGH intensity statin dose unless contraindicated. You will be required to document reason for non-treatment if statin daily dose does not meet guidelines. HIGH DOSE STATIN THERAPY DAILY Atorvastatin > than or = to 40 mg Rosuvastatin > than or = to 20 mg Amlodipine + Atorvastatin > than or = to 2.5/40 mg Ezetimibe + Simvastatin 10/80 mg Simvastatin 80mg Discharge Plan Admission Admit Date/Time: 10/30/24 12:53 Primary Reason for Your Visit: left foot cellulitis Attending Provider: Raymond Doty Primary Care Provider: Care Physician,No Primary Consulting Providers: Placido Melgar Instructions Additional Instructions / Restrictions: You had a wound on your left foot that was excised by Dr. Melgar. MRI was negative for any deeper infection fortunately. Wear a surgical shoe and heel weight bear on left foot. Follow up with Dr. Melgar this week. Discharge Orders/Prescriptions Prescriptions: New metformin 500 mg tablet 500 mg PO DAILY Qty: 30 0RF cephalexin 500 mg capsule 500 mg PO Q8H Qty: 21 0RF Referrals / Follow Up: Placido Melgar DPM [Med Staff - Active Staff] - Within 1 Week Care Physician,No Primary [Primary Care Provider] - Disposition Disposition (needs filled in before D/C Order can be placed): Home, Self Care Charges/Coding Visit Charges Inpatient E&M: 55372 Disch Hosp >30min
[2024-11-01] MEDS: 0.9% Saline Lock 10 ML Syringe IV (11:04)
[2024-11-01] MEDS: Insulin Lispro 100 UNIT/ML INSULN.PEN SC ×2 (11:13→16:13)
--- NOTE | 2024-11-01 11:30 | CASEMGMT ---
ASHA FLOREZ Assessment: Face to Face with pt for initial transition planning/care coordination assessment. ASHA FLOREZ introduced self and role at [facility], pt voices understanding and consents to assessment. Pt is A&O x4 and answers all questions appropriately at this time. Pt lying in bed in no distress with sig other on phone. Pt wishes to have sig other on speaker during assessment. Care providers, pharmacy, and demographics verified/updated. Admitting Dx: DM foot wound Strata Score: 2 PCP:Denies- provided pt with a local healthcare directory pamphlet with pcp's and endo. Pt states they will choose provider and set up appts. Specialists:Denies Preferred Pharmacy:[facility] [place] Insurance: [facility] Prescription Benefit: yes LNOK: Bakari Knight, sig other Living Arrangements: Pt lives alone typically in [place], [place] but will be staying with sig other in [place] until he is healed. This home is a single story with no steps to enter. Pt reports he is I in ADLs and IADLs and denies concerns at home. Bakari is able to assist with IADLs. Transportation: Pt drives self and denies concerns with transportation. DME:BGM with sufficient amount of strips and lancets HHC/SNF: Denies hx of Pt states no concerns with going home at time of dc. Pt states he or Bakari can perform wound care if needed. He will be following up with Dr. Melgar. Pt is aware of weightbearing status and can maintain it. Pt sig other states this is a wake up call. Pt states no further concerns/needs. CM to follow. Advised pt to ask CM if any further question/concerns/needs arise, voices understanding. Pt Goal: Home Plan: Home Sherice BARRY CM
[2024-11-01 11:32] LABS: Bedside Glucose 241 mg/dL (74-106)
[2024-11-01 12:14] VITALS: BP 148/76; PULSE 87; RESP 17; TEMP 36.7; O2SAT 94
--- NOTE | 2024-11-01 12:21 | PCM.PROGNOTE ---
Subjective Subjective No changes today Objective Data Objective Data Vital Signs: Vital Signs Temp Pulse Resp BP Pulse Ox O2 Del Method 98.1 F 87 17 148/76 H 94 Room Air 11/01/24 12:14 11/01/24 12:14 11/01/24 12:14 11/01/24 12:14 11/01/24 12:14 11/01/24 12:14 Oxygen Delivery Method Room Air Weight: 73.301 kg Body Mass Index (BMI) 21.3 Intake & Output: Intake and Output for Last 24 Hours 10/30/24 10/31/24 11/01/24 23:59 23:59 23:59 Intake Total 791.25 / 791.25 2280.75 / 2880.75 2070 Balance 791.25 / 791.25 2280.75 / 2880.75 2070 Lab / Micro Data 11/01/24 06:32 11/01/24 06:32 Labs: Laboratory Results - last 24 hr 10/31/24 16:14: POC Glucose 250 H 10/31/24 20:07: POC Glucose 264 H 10/31/24 23:55: Vancomycin Trough 13.0 11/01/24 06:17: POC Glucose 173 H 11/01/24 06:32: WBC 4.6, RBC 4.96, Hgb 15.1, Hct 44.1, MCV 88.9, MCH 30.4, MCHC 34.2, RDW Std Deviation 40.6, RDW Coeff of Jacquelin 12.5, Plt Count 172, MPV 9.8, Immature Gran % (Auto) 0.400, Neut % (Auto) 56.2, Lymph % (Auto) 28.1, [place] % (Auto) 9.6, Eos % (Auto) 4.6, Baso % (Auto) 1.1 H, Absolute Neuts (auto) 2.6, Absolute Lymphs (auto) 1.28, Nucleated RBC % 0, Sodium 135 L, Potassium 4.1, Chloride 102, Carbon Dioxide 30.0, Anion Gap 3 L, BUN 13, Creatinine 0.78, Estim Creat Clear Calc 113.55, Est GFR (MDRD) Af Amer 134, Est GFR (MDRD) Non-Af 111, BUN/Creatinine Ratio 16.7, Glucose 195 H, Calcium 9.3 11/01/24 11:10: POC Glucose 241 H Micro: Microbiology 10/30/24 11:45 Wound Abcess - Plantar Gram Stain - Final 10/30/24 11:45 Wound Abcess - Plantar Wound Culture - Final Streptococcus agalactiae (B) 10/30/24 11:55 Blood Culture (Wb) - Anticubital Right Blood Culture - Preliminary No growth in 48 hours. 10/30/24 11:55 Blood Culture (Wb) - Left Forearm Blood Culture - Preliminary No growth in 48 hours. 10/30/24 11:45 Wound - Left Foot Skin and Soft Tissue MRSA/MSSA (PCR - Final Radiography Diagnostic Testing: Radiology Impression Lower Extremity MRI 10/31/24 09:00 IMPRESSION: Unremarkable MRI of the left foot. No osteomyelitis. Electronically Signed: Shady Terry MD at 4:03 EST , Physical Exam Narrative Vascular: Dorsalis pedis posterior tibial pulses palpable 2 out of 4 bilateral lower extremity compartments. Capillary fill time brisk to lesser digits. Neurologic: Light touch protective sensation intact bilateral feet. Dermatologic: Healing plantar left foot wound, resolving cellulitis Musculoskeletal: Plantarflexed left fourth metatarsal head, plantarflexed right third metatarsal head. Muscular strength full. No other gross deformity noted. No sign of DVT. Assessment & Plan Assessment/Plan (1) Type 2 diabetes mellitus with diabetic polyneuropathy: QUALIFIERS: Diabetes mellitus termite control service representative insulin use: with termite control service representative use Qualified Code(s): E11.42 - Type 2 diabetes mellitus with diabetic polyneuropathy; Z79.4 - shelter (current) use of insulin PLAN: Exam performed mri negative for osteomyelitis recommend d/c on 2 weeks PO augmentin follow up in 1 week in my office dress daily with betadined, 4x4s, maureen/kerlix offload with heel weightbearing in surgical shoe on left (2) Cellulitis of left lower limb: (3) Non-pressure chronic ulcer of other part of left foot with fat layer exposed:
--- NOTE | 2024-11-01 12:28 | PHA.DC_ITS ---
Pharmacy [facility] Pharmacy Service has performed discharge medication reconciliation and counseling for this patient. 1. CEPHALEXIN 500MG PO Q8 X 7 DAYS 2. METFORMIN 500MG PO DAILY The patient's discharge medication list was reviewed for discrepancies and discrepancies were resolved. The patient was counseled on the following discharge medications and changes in medications for homegoing were reviewed. The Reason for Use, instructions for use, and potential side effects were reviewed for all new medications. The patient's questions regarding all of their medications were answered. The patient was able to verbally demonstrate an understanding of their discharge medications. Medications at Discharge Home Medications cephalexin 500 mg capsule 500 mg PO Q8H #21 caps 11/01/24 metformin 500 mg tablet 500 mg PO DAILY #30 tabs 11/01/24
[2024-11-01 16:07] VITALS: BP 154/81; PULSE 88; RESP 16; TEMP 36.7; O2SAT 94
[2024-11-01 16:34] LABS: Bedside Glucose 264 mg/dL (74-106)
== END 2024-11-01 19:04 | disposition home or self-care (01) | DRG 623 ==
LOC: ED 12:31 → MS3 11-01 09:38
PROVIDERS: Emergency Provider Emergency Medicine
DX: E11.621 Type 2 diabetes mellitus with foot ulcer (principal); L97.522 Non-pressure chronic ulcer of other part of left foot with fat layer exposed; E11.42 Type 2 diabetes mellitus with diabetic polyneuropathy; E11.65 Type 2 diabetes mellitus with hyperglycemia; L03.116 Cellulitis of left lower limb; F17.210 Nicotine dependence, cigarettes, uncomplicated; B95.1 Streptococcus, group B, as the cause of diseases classified elsewhere; L84 Corns and callosities
CPT/HCPCS: 11042; 36415; 73630; 73720; 80048; 80053; 80202; 82962; 83036; 83605; 85025; 85610; 85652; 85730; 86140; 87040; 87070; 87077; 87186; 87205; 87640; 93005; 96365; 96366; 96367; 96372; 97802; 99221; 99285; 99406; A9575; A4216; G0378; J0295